=== PATIENT | male | born 1965 | race Caucasian/White ===

== ENCOUNTER 2019-06-29 14:24 | Observation (INO) ==
[2019-06-29] MEDS ORDERED: Tetracaine 0.5% OPTH 80 DROP/4 ML BOTTLE RIGHT EYE ONE (15:08)
[2019-06-29 15:18] LABS: Hemoglobin 15.6 g/dL (12.9-16.9); Mean Corpuscular HGB Conc 33.9 g/dL (31.6-35.5); Mean Corpuscular Hemoglobin 28.1 pg (28.0-33.3); Mean Corpuscular Volume 82.7 fL (83.0-100.0); Mean Platelet Volume 10.3 fL (9.4-12.4); Platelet Count 197 K/mcL (140-400); Red Blood Count 5.56 M/mcL (4.19-5.50); Red Cell Distribution Width 14.1 % (11.5-14.5); White Blood Count 5.2 K/mcL (4.3-11.1)
[2019-06-29 15:20] LABS: Prothrombin Time 11.8 Seconds (9.4-12.1)
[2019-06-29 15:34] LABS: BUN/Creatinine Ratio 19 (6-26); Blood Urea Nitrogen 18 mg/dL (6-20); Calcium 9.5 mg/dL (8.6-10.3); Carbon Dioxide 23 mEq/L (23-29); Chloride 100 mEq/L (98-107); Ethanol < 10 mg/dL (Less than 10); Glucose 307 mg/dL (70-105); Osmolality,Calculated 291 (280-300); Sodium 134 mEq/L (136-145); Troponin I < 0.03 ng/mL (< 0.04); eGFR For African Americans > 60 (> 60); eGFR For Non-African Americans > 60 (> 60)
[2019-06-29 15:39] LABS: Amphetamine Screen,Urine Negative ng/mL (Cutoff=1000); Barbiturate Screen,Urine Negative ng/mL (Cutoff=200); Benzodiazepines Screen,Urine Negative ng/mL (Cutoff=200); Bilirubin,Urine Negative (Negative); Blood,Urine Negative (Negative); Cannabinoid Screen,Urine Negative ng/mL (Cutoff = 50); Clarity,Urine Clear (Clear); Cocaine Screen,Urine Negative ng/mL (Cutoff= 300); Color,Urine Yellow (Yellow); Glucose,Urine (UA) >=1000 mg/dL (Normal); Ketones,Urine Negative (Negative); Leukocyte Esterase,Urine Negative (Negative); Nitrite,Urine Negative (Negative); Opiate Screen,Urine Negative ng/mL (Cutoff=300); Phencyclidine Screen,Urine Negative ng/mL (Cutoff=25); Protein,Urine Negative (Neg-Trace); Specific Gravity,Urine > 1.030 (1.010-1.025); Urobilinogen,Urine Normal (Normal)
[2019-06-29] MEDS ORDERED: Aspirin 325 MG TABLET PO ONE (17:37)
[2019-06-29] MEDS ORDERED: Dextrose Gel 15 GM/37.5 ML TUBE PO PRN ×2 (17:59)
[2019-06-29] MEDS ORDERED: D5% in Water 1,000 ML IVC PRN (17:59)
[2019-06-29] MEDS ORDERED: *HR* Dextrose 50 % in Water (Syg) 50 ML SYRINGE IVP PRN (17:59)
[2019-06-29] MEDS ORDERED: Ondansetron 4 MG/2 ML VIAL IVP PRN (18:00)
[2019-06-29] MEDS ORDERED: Naloxone 0.4 MG/ML INJ IVP PRN (18:00)
[2019-06-29] MEDS ORDERED: predniSONE 20 MG TABLET PO ONE (19:53)
[2019-06-29] MEDS ORDERED: Insulin DETEMIR 100 UNIT/ML X5UNITS SQ SCH (21:00)
[2019-06-29] MEDS: Artificial Tears SOLN 15 ML BOTTLE RIGHT EYE SCH (23:47)
[2019-06-29] MEDS: *HR* Heparin 5,000 UNIT/ML VIAL SQ SCH (23:47)
[2019-06-29] MEDS: Acyclovir 200 MG CAPSULE PO SCH (23:57)
[2019-06-30 02:06] LABS: Prothrombin Time 11.1 Seconds (9.4-12.1)
[2019-06-30 02:49] LABS: Alanine Aminotransferase 30 Units/L (7-52); Albumin 4.3 g/dL (3.5-5.7); Albumin/Globulin Ratio 1.8 (1.1-2.2); Alkaline Phosphatase 57 Units/L (34-104); Aspartate Amino Transferase 23 Units/L (13-39); BUN/Creatinine Ratio 18 (6-26); Bilirubin,Total 0.4 mg/dL (0.3-1.0); Blood Urea Nitrogen 17 mg/dL (6-20); Calcium 9.4 mg/dL (8.6-10.3); Carbon Dioxide 21 mEq/L (23-29); Chloride 101 mEq/L (98-107); Chol/HDL Ratio 15.3 (0-4.9); Cholesterol 351 mg/dL (< 200); Globulin 2.4 g/dL (2.4-3.5); Glucose 132 mg/dL (70-105); HDL Cholesterol 23 mg/dL (40-59); Osmolality,Calculated 281 (280-300); Potassium 3.8 mEq/L (3.5-5.1); Sodium 134 mEq/L (136-145); Total Protein 6.7 g/dL (6.4-8.9); Triglycerides 1702 mg/dL (< 150); eGFR For African Americans > 60 (> 60); eGFR For Non-African Americans > 60 (> 60)
[2019-06-30 03:04] LABS: LDL Cholesterol,Direct 66 mg/dL (75-193)
[2019-06-30] MEDS: *HR* Heparin 5,000 UNIT/ML VIAL SQ SCH ×2 (06:32→17:50)
[2019-06-30 08:09] LABS: Estimated Average Glucose 280 mg/dl
[2019-06-30] MEDS: Aspirin Enteric Coated 81 MG Tablet PO SCH (08:59)
[2019-06-30] MEDS: Acyclovir 200 MG CAPSULE PO SCH (09:00)
[2019-06-30] MEDS: Lisinopril 20 MG TABLET PO SCH (09:00)
[2019-06-30] MEDS: Artificial Tears SOLN 15 ML BOTTLE RIGHT EYE SCH ×4 (09:01→19:35)
[2019-06-30] MEDS: Insulin LISPRO 300 UNITS/3 ML VIAL SQ SCH ×3 (09:04→17:47)
[2019-06-30] MEDS: predniSONE 20 MG TABLET PO SCH (10:34)
[2019-06-30] MEDS ORDERED: 0.9 % Sodium Chloride 1,000 ML IV ONE (15:19)
[2019-06-30] MEDS ORDERED: D5% in Water 1,000 ML IVC PRN (15:46)
[2019-06-30] MEDS ORDERED: *HR* Dextrose 50 % in Water (Syg) 50 ML SYRINGE IVP PRN (15:46)
[2019-06-30] MEDS ORDERED: Dextrose Gel 15 GM/37.5 ML TUBE PO PRN ×2 (15:46)
[2019-06-30] MEDS: valACYclovir 500 MG TABLET PO SCH ×2 (15:49→19:33)
[2019-06-30] MEDS: 0.9 % Sodium Chloride 1,000 ML IVC SCH (17:56)
[2019-06-30] MEDS ORDERED: Fenofibrate 54 MG TABLET PO SCH (18:00)
[2019-06-30] MEDS: Insulin DETEMIR 100 UNIT/ML X5UNITS SQ SCH (19:33)
[2019-07-01] MEDS: 0.9 % Sodium Chloride 1,000 ML IVC SCH (02:56)
[2019-07-01] MEDS: *HR* Heparin 5,000 UNIT/ML VIAL SQ SCH (05:08)
[2019-07-01 06:04] LABS: Basophils % 0.3 %; Eosinophils # 0.1 K/mcL (0.0-0.6); Eosinophils % 0.9 %; Hematocrit 42.3 % (37.5-50.1); Hemoglobin 14.3 g/dL (12.9-16.9); Lymphocytes # 2.6 K/mcL (0.6-4.6); Lymphocytes % 25.4 %; Mean Corpuscular HGB Conc 33.8 g/dL (31.6-35.5); Mean Corpuscular Hemoglobin 27.9 pg (28.0-33.3); Mean Corpuscular Volume 82.5 fL (83.0-100.0); Mean Platelet Volume 10.5 fL (9.4-12.4); Monocytes # 0.9 K/mcL (0.0-1.3); Monocytes % 8.7 %; Platelet Count 195 K/mcL (140-400); Red Blood Count 5.13 M/mcL (4.19-5.50); Red Cell Distribution Width 14.2 % (11.5-14.5); Segmented Neutrophils % 63.7 %
[2019-07-01 06:19] LABS: Alanine Aminotransferase 22 Units/L (7-52); Albumin 3.8 g/dL (3.5-5.7); Albumin/Globulin Ratio 1.8 (1.1-2.2); Alkaline Phosphatase 46 Units/L (34-104); Aspartate Amino Transferase 14 Units/L (13-39); BUN/Creatinine Ratio 26 (6-26); Bilirubin,Direct 0.1 mg/dL (0.0-0.2); Bilirubin,Indirect 0.3 mg/dL (0.0-1.0); Bilirubin,Total 0.4 mg/dL (0.3-1.0); Blood Urea Nitrogen 23 mg/dL (6-20); Calcium 8.6 mg/dL (8.6-10.3); Carbon Dioxide 20 mEq/L (23-29); Chloride 105 mEq/L (98-107); Chol/HDL Ratio 12.5 (0-4.9); Cholesterol 288 mg/dL (< 200); Globulin 2.1 g/dL (2.4-3.5); Glucose 140 mg/dL (70-105); HDL Cholesterol 23 mg/dL (40-59); Lipase 87 Units/L (11-82); Magnesium 2.1 mg/dL (1.6-2.6); Neutrophils # 6.6 K/mcL (1.6-8.9); Osmolality,Calculated 292 (280-300); Potassium 3.7 mEq/L (3.5-5.1); Sodium 138 mEq/L (136-145); Total Protein 5.9 g/dL (6.4-8.9); Triglycerides 925 mg/dL (< 150); White Blood Count 10.3 K/mcL (4.3-11.1); eGFR For African Americans > 60 (> 60); eGFR For Non-African Americans > 60 (> 60)
[2019-07-01] MEDS: Insulin LISPRO 300 UNITS/3 ML VIAL SQ SCH (08:24)
[2019-07-01] MEDS: Artificial Tears SOLN 15 ML BOTTLE RIGHT EYE SCH (08:24)
[2019-07-01] MEDS: Aspirin Enteric Coated 81 MG Tablet PO SCH (08:25)
[2019-07-01] MEDS: Lisinopril 20 MG TABLET PO SCH (08:25)
[2019-07-01] MEDS: predniSONE 20 MG TABLET PO SCH (08:25)
[2019-07-01] MEDS: valACYclovir 500 MG TABLET PO SCH (08:25)
[2019-07-01] MEDS: Insulin DETEMIR 100 UNIT/ML X5UNITS SQ SCH (08:36)
[2019-07-01 12:00] VITALS: BP 124/79
== END 2019-07-01 14:25 | disposition home health service (06) ==
LOC: EMEROOARM 14:24 → 3BNU 14:24 → SUATTDRO 18:33 → 3BNU 19:33
PROVIDERS: ADMIT Internal Medicine; ATTEND Pharmacist